=== PATIENT | male | born 1965 | race Caucasian/White ===

== ENCOUNTER 2018-12-31 11:20 | Emergency (ER) | payer SELFPAY ==
[~2018-12-31] VITALS: Ht 180.3 cm; Wt 81.6 kg
[2018-12-31 11:47] VITALS: BP 136/86
--- NOTE | 2018-12-31 12:13 | PHYS DOC ---
Past Medical History Past Medical History: No Pertinent History Past Surgical History: No Surgical History Alcohol Use: None Drug Use: None Adult General Chief Complaint Chief Complaint: KNEE INJURY HPI HPI 53 y/o male presents to ER for complaints of right knee swelling for the past couple of weeks which has gradually worsened. Patient denies any known injury. Patient reports he had had a joint effusion many years ago and feels that is what is currently going on. Patient denies skin discoloration, redness, or fever. Pt during initial discussion appears frustrated. He is at times rude and interrupting questions regarding knee pain/sxs. Review of Systems Review of Systems Constitutional: Denies fever Musculoskeletal: Reports rt knee pain/swelling- denies inability to walk Integument: Denies redness/bruising Neurologic: Denies focal weakness or sensory changes [] All other systems were reviewed and found to be within normal limits, except as documented in this note. Allergies Allergies Allergies Coded Allergies Type Severity Reaction Last Updated Verified No Known Drug Allergies 12/31/18 No Physical Exam Physical Exam Constitutional: Well developed, well nourished, no acute distress, non-toxic appearance. [] HENT: Normocephalic, oropharynx moist, nose normal. [] Eyes: Pupils equal, conjunctiva normal, no discharge. [] Neck: Normal range of motion, supple Cardiovascular:Heart rate regular Lungs & Thorax: Resp. equal/nonlabored Back: Full ROM Extremities: Rt LE No cyanosis- skin pink. Pt didn't allow physical exam of rt lower extremity when this provider stated he would xray at least for evaluation of knee. Once that was advised pt requested to leave ER. Pt has anterior swelling to rt lateral side patella- no visible deformity. Pt is able to perform ROM. No discoloration of rt LE exposed during discussion Neurologic: Alert and oriented X 3 Psychologic: Affect normal, judgement normal, rude at times and uncooperative with exam Current Patient Data Vital Signs Vital Signs Date Time Temp Pulse Resp B/P (MAP) Pulse Ox O2 Delivery O2 Flow Rate FiO2 12/31/18 11:47 98.1 101 20 136/86 (103) 97 Room Air 98.1 EKG EKG [] Radiology/Procedures Radiology/Procedures [] Course & Med Decision Making Course & Med Decision Making During initial discussion pt requested knee drainage and wasn't wanting any imaging/tests. Pt was rude at times and interrupted questions regarding sxs. Attempted to discuss need for imaging to help with determining cause of rt knee pain/swelling. Pt refused xrays/tests and said he was leaving and would go to a doctor that would drain his rt knee without xrays/tests. Attempts to discuss tests/plan of care were interrupted and pt wanted to leave without further discussion. Advise pt to f/u with PCP and/or orthop. doctor for further care. Education provided to pt on s&s to return to ER for and discussed use of tylenol/ibuprofen and emile wrap to knee for support. Emile wrap was offered- pt refused. While typing d/c instructions RN reported pt was seen walking out of ER- didn't inform staff or wait for d/c paperwork. [] Dragon Disclaimer Dragon Disclaimer This electronic medical record was generated, in whole or in part, using a voice recognition dictation system. Departure Departure Impression: Primary Impression: Knee pain, right Disposition: 01 HOME, SELF-CARE Condition: STABLE Referrals: SHAI FLORES MD Patient Instructions: Knee Pain Additional Instructions: As discussed you should have an xray to evaluate your right knee for any injury. Follow-up with your doctor or an orthopedic doctor for further care as you preferred not to have an xray done. You can wear an Emiel wrap to your knee for support and compression and apply ice packs every 3-4 hours for 20-30 minutes at a time. Avoid direct ice contact with the skin. ALEKSANDAR DORSEY APRN December 31, 2018 12:13
== END 2018-12-31 12:21 | disposition home or self-care (01) ==
LOC: EDSEX 11:20 → ER 11:20
DX: M25.561 Pain in right knee (principal); M79.89 Other specified soft tissue disorders
CPT/HCPCS: 99281